=== PATIENT | male | born 1955 | race Caucasian/White ===

== ENCOUNTER → 2016-09-19 | Outpatient (CLI) | payer OTHER ==
[~2016-09-19] MED LIST: AMARYL PO; BENICAR HCT 40-1 TA1 PO; CARVEDILOL25 MG PO; COLESTID1 GM; ESCITALOPRAM OX10 MG PO; JANUVIA PO; LANTUS SUBQ; LASIX20 MG PO; METFORMIN PO
--- NOTE | ~2016-09-19 | US136 ---
[facility] A Service of [facility] & [facility] / [facility] RADIOLOGY TEXT RESULTS PATIENT: FÁTIMA ALVAREZ LOCATION: CNIV : 53 UNIT #: [id number] AGE: [address]: José Miguel Lala MD SEX: M ORDER DR: [id number] [facility] [address] [place], [place] [address] [id number] O MR#: [id number] Acc #: [id number] NAME: FÁTIMA ALVAREZ : 1955 SEX: M STUDY DATE/TIME: 09/19/2016 8:51 UNIT: CNIV ROOM: STUDY DESCRIPTION: U/L Ext Art Study [facility] Bil Attending Physician: José Miguel Lala M.D. Referring Physician: José Miguel Lala M.D. Ordering Physician: José Miguel Lala M.D. Primary Care Physician: Luciano Lilly M.D. MEDICAL IMAGING REPORT This report is preliminary unless electronic signature is present EXAM Ankle-brachial indices. INDICATION 60-year-old male with peripheral vascular disease. Diabetes, hypertension, and hyperlipidemia. FINDINGS The brachial pressure is 190. The right ankle pressure is 202 and the left ankle pressure is 192. Right WILMER 1.06, left WILMER 1.01. Toe-brachial index on the right 1.01, on the left it is 0.73. IMPRESSION 1. Normal ankle-brachial indices. 2. Decreased toe-brachial index on the left suggesting small vessel disease in the left foot. Dictated by... Fernandez Jones M.D. THIS IS AN ELECTRONICALLY VERIFIED REPORT Fernandez Jones M.D. at 09/21/2016 4:31 PM PAN/lisette TD: 09/21/2016 15:23 JOB #: [id number] MEDICAL IMAGING REPORT COPY
== END | disposition home or self-care (01) ==
LOC: CNIV 08:38
DX: I73.9 Peripheral vascular disease, unspecified (principal)
CPT/HCPCS: 93922